=== PATIENT | male | born 1955 | race Caucasian/White ===

== ENCOUNTER → 2018-02-22 | Outpatient (CLI) | payer OTHER ==
[2018-02-22] MEDS: GADOBUTROL 10 MMOL/10 ML VIAL IV (16:17)
== END | disposition home or self-care (01) ==
LOC: KCIC MRI 15:22
DX: Z01.00 Encounter for examination of eyes and vision without abnormal findings (principal); R22.1 Localized swelling, mass and lump, neck
CPT/HCPCS: 70030; 70543; A9585

== ENCOUNTER → 2018-04-05 | Outpatient (CLI) | payer OTHER | END | disposition home or self-care (01) | LOC: KCIC 09:55 | DX: D71 Functional disorders of polymorphonuclear neutrophils (principal) | CPT/HCPCS: 71046 ==